=== PATIENT | female | born 1945 | race Caucasian/White ===

== ENCOUNTER 2018-07-30 09:08 | Day surgery (SDC) | payer MEDICARE, BC, OTHER ==
[~2018-07-30] VITALS: Ht 152.4 cm; Wt 77.0 kg
[~2018-07-30 09:08] MED LIST: ADAL40SY INJ; ATOR20TA37 PO; CALC-332 PO; CARV10CP PO; CETI10CA PO; CHOL40002 PO; DENO60DI INJ; FOLI-17 PO; IBUP200C8 PO; LEVO150T5 PO; METH2.5T PO; MONT10TA6 PO; MULT-658 PO; OMEG1CAP6 PO; PANT20TA2 PO; SILVER NITRATE STICK TP ONE; [UNRECOGNIZED DRUG - OTHER] TP
[2018-07-30] MEDS ORDERED: LACTATED RINGERS 1,000 ML IV SCH (09:23)
[2018-07-30] MEDS ORDERED: MIDAZOLAM 1 MG/ML, 2ML ONE (10:34)
[2018-07-30] MEDS ORDERED: FENTANYL PF 250 MCG/5ML ONE (10:34)
[2018-07-30] MEDS ORDERED: ROCURONIUM 10 MG/ML,10ML ONE (11:37)
[2018-07-30] MEDS ORDERED: BUPIVACAINE/PF 0.25% INFIL ONE (11:39)
[2018-07-30] MEDS ORDERED: ONDANSETRON 2MG/ML, 2ML ONE (11:55)
[2018-07-30] MEDS ORDERED: PROPOFOL 10 MG/ML, 20ML ONE (11:55)
[2018-07-30] MEDS ORDERED: DEXAMETHASONE 4 MG/ML, 5ML ONE (11:55)
[2018-07-30] MEDS ORDERED: PROMETHAZINE 25 MG/ML, 1ML IV PRN (12:00)
[2018-07-30] MEDS ORDERED: hydrALAzine 20 MG/ML, 1ML IV PRN (12:00)
[2018-07-30] MEDS ORDERED: HYDROmorphone 2 MG/ML, 1ML IVPush PRN (12:00)
[2018-07-30] MEDS ORDERED: ONDANSETRON 2MG/ML, 2ML IV PRN (12:00)
[2018-07-30] MEDS ORDERED: ACETAMINOPHEN 325 MG TABLET PO PRN (12:00)
[2018-07-30] MEDS ORDERED: LABETALOL 5MG/ML, 20ML IV PRN (12:00)
[2018-07-30] MEDS ORDERED: MEPERIDINE/PF 25MG/0.5ML IVPush PRN (12:00)
[2018-07-30] MEDS ORDERED: OXYcodone 5 MG/5 ML ORAL.SOL UDC PO PRN (12:00)
[2018-07-30] MEDS ORDERED: FENTANYL PF 100 MCG/2ML IV PRN (12:00)
[2018-07-30] MEDS ORDERED: PROMETHAZINE 25 MG/ML, 1ML ONE (13:05)
== END 2018-07-30 16:10 | disposition home or self-care (01) ==
LOC: OUT 09:08
PROVIDERS: ATTEND Obstetrics & Gynecology
DX: N95.0 Postmenopausal bleeding (principal); I10 Essential (primary) hypertension; E03.9 Hypothyroidism, unspecified; E78.5 Hyperlipidemia, unspecified; Z86.718 Personal history of other venous thrombosis and embolism
CPT/HCPCS: 58558; 88305; J1100; J2250; J2405; J2550; J2704; J3010; J3490; J7120

== ENCOUNTER 2019-05-15 11:47 | Inpatient (IN) | payer MEDICARE, BC, OTHER ==
[~2019-05-15] VITALS: Ht 152.4 cm; Wt 79.6 kg
[~2019-05-15 11:47] MED LIST changes: -SILVER NITRATE STICK TP ONE
--- NOTE | 2019-05-15 11:58 | NUR ---
donita. report received from [facility]. pt's family noticed pt is confused since 9 am. pt states "i feel confused." denies any other sx. pt's aox4.resps even and unlabored. all monitors in place. call light within reach. ekg done at bedside by emt. md at bedside to avluate at this time.
--- NOTE | 2019-05-15 12:10 | NUR ---
WARM BLANCKET GIVEN AT THIS TIME.
--- NOTE | 2019-05-15 12:24 | NUR ---
PT AMB TO BR WITH STEADY GAIT. UA CUP GIVEN.
--- NOTE | 2019-05-15 12:36 | NUR ---
UA SENT AT THIS TIME.
[2019-05-15 12:44] LABS: BASOPHILS # (AUTO) 0.02 x10^3/uL (0-0.1); BASOPHILS % (AUTO) 0 % (0-1); EOSINOPHILS # (AUTO) 0.04 x10^3/uL (0-0.4); EOSINOPHILS % (AUTO) 0 % (1-7); LYMPHOCYTES # (AUTO) 1.58 x10^3/uL (1-3.4); LYMPHOCYTES % (AUTO) 15 % (22-44); MD NO; MEAN CORPUSCULAR HEMOGLOBIN 33.7 pg (27.0-34.8); MEAN CORPUSCULAR HGB CONC 32.5 g/dL (32.4-35.8); MEAN CORPUSCULAR VOLUME 103.7 fL (80-100); MEAN PLATELET VOLUME 7.7 fL (7.4-10.4); MONOCYTES # (AUTO) 0.44 x10^3/uL (0.2-0.8); MONOCYTES % (AUTO) 4 % (2-9); NEUTROPHILS # (AUTO) 8.53 x10^3/uL (1.8-6.8); NEUTROPHILS % (AUTO) 80 % (42-75); PLATELET COUNT 246 x10^3/uL (130-400); RED BLOOD COUNT 4.48 x10^6/uL (3.82-5.3)
[2019-05-15 12:45] LABS: MICROSCOPIC NOT IND
--- NOTE | 2019-05-15 12:54 | NUR ---
REPORT GIVEN TO ILEANA HOPPER.
[2019-05-15 12:57] LABS: ALANINE AMINOTRANSFERASE 43 U/L (12-78); ANION GAP 6 mmol/L (5-15); CALCIUM 9.4 mg/dL (8.5-10.1); CHLORIDE 115 mmol/L (98-107); CREATININE 0.68 mg/dL (0.55-1.02)
[2019-05-15 12:59] LABS: ALKALINE PHOSPHATASE 77 U/L (45-117); BILIRUBIN,TOTAL 0.6 mg/dL (0.2-1.0); TOTAL PROTEIN 7.6 g/dL (6.4-8.2)
[2019-05-15] MEDS ORDERED: ATOR20TA37 PO (13:03)
--- NOTE | 2019-05-15 13:03 | NUR ---
REPORT FROM RUCHI CARDENAS. PT SITTING RECLINED IN BED, RESPIRATIONS EVEN AND UNLABORED ON RA. AT BEDSIDE. CXR AT BEDSIDE. MED REC COMPLETE. PT DENIES PAIN AT THIS TIME.
[2019-05-15] MEDS ORDERED: ALBU0.63 NEB (13:07)
--- NOTE | 2019-05-15 13:07 | NUR ---
PT REPORTS JUST FINISHING TODAY ZPAK AND PREDNISONE FOR "LUNG INFECTION" GIVEN BY PRIMARY CARE. DENIES DX OF PNEUMONIA.
--- NOTE | 2019-05-15 13:46 | NUR ---
PT SITTING UP IN BED, RESPIRATIONS EVEN AND UNLABORED ON RA. SIDE RAILS UP, CALL LIGHT IN REACH. PT AWARE OF PLAN TO ADMIT FOR OBSERVATION. AOX4, BUT REPORTS CONFUSION STARTING TODAY. AT BEDSIDE.
[2019-05-15] MEDS ORDERED: IBUPROFEN 200 MG TABLET PO PRN (16:00)
[2019-05-15 16:20] VITALS: BP 126/73
[2019-05-15 16:30] VITALS: BP 126/73
[2019-05-15] MEDS ORDERED: LORazepam 2 MG/ML, 1ML IVPush PRN (16:30)
[2019-05-15 17:00] VITALS: BP 158/90
[2019-05-15 17:46] LABS: HEMOGLOBIN A1C 6.1 % (4.2-6.3)
[2019-05-15] MEDS ORDERED: GADOTERATE 7.5 MMOL/15 ML SYR ONE (17:47)
[2019-05-15 20:20] VITALS: BP 114/70
[2019-05-15] MEDS ORDERED: FOLIC ACID 1 MG TABLET PO SCH (21:00)
[2019-05-15] MEDS ORDERED: MONTELUKAST 10 MG TABLET PO SCH (21:00)
[2019-05-15] MEDS ORDERED: ATORVASTATIN 20 MG TABLET PO SCH (21:00)
[2019-05-15] MEDS ORDERED: CETIRIZINE 10 MG TABLET PO SCH (21:00)
[2019-05-16 01:20] VITALS: BP 121/77
[2019-05-16 05:54] LABS: BASOPHILS # (AUTO) 0.03 x10^3/uL (0-0.1); BASOPHILS % (AUTO) 0 % (0-1); EOSINOPHILS # (AUTO) 0.16 x10^3/uL (0-0.4); EOSINOPHILS % (AUTO) 2 % (1-7); LYMPHOCYTES # (AUTO) 3.39 x10^3/uL (1-3.4); LYMPHOCYTES % (AUTO) 34 % (22-44); MD NO; MEAN CORPUSCULAR HEMOGLOBIN 33.3 pg (27.0-34.8); MEAN CORPUSCULAR VOLUME 104.1 fL (80-100); MEAN PLATELET VOLUME 7.9 fL (7.4-10.4); MONOCYTES % (AUTO) 8 % (2-9); NEUTROPHILS # (AUTO) 5.52 x10^3/uL (1.8-6.8); NEUTROPHILS % (AUTO) 56 % (42-75); PLATELET COUNT 196 x10^3/uL (130-400); RED BLOOD COUNT 4.21 x10^6/uL (3.82-5.3); RED CELL DISTRIBUTION WIDTH 14.9 % (9.6-15.2)
[2019-05-16 05:58] LABS: ALANINE AMINOTRANSFERASE 38 U/L (12-78); ALBUMIN 3.6 g/dL (3.4-5.0); ANION GAP 6 mmol/L (5-15); CHLORIDE 114 mmol/L (98-107)
[2019-05-16 06:01] LABS: ALKALINE PHOSPHATASE 63 U/L (45-117); BILIRUBIN,TOTAL 0.7 mg/dL (0.2-1.0); CHOL/HDL RATIO 1.9; CHOLESTEROL, TOTAL 161 mg/dL (140-239); HDL CHOL % 52 % (28-40); HDL CHOLESTEROL (DIRECT) 83 mg/dL (40-60); LDL CHOLESTEROL,CALCULATED 60 mg/dL (54-169); LDL/HDL RATIO 0.7 (0.5-3.0); TOTAL PROTEIN 6.5 g/dL (6.4-8.2); TRIGLYCERIDES 91 mg/dL (50-200); VLDL CHOLESTEROL 18 mg/dL (0-25)
[2019-05-16] MEDS ORDERED: POTASSIUM CHLORIDE 20 MEQ TAB.ER.PRT PO ONE (06:30)
[2019-05-16] MEDS: PANTOPRAZOLE 20MG TABLET PO SCH ×2 (06:33→08:48)
[2019-05-16 07:28] VITALS: BP 127/80
[2019-05-16] MEDS ORDERED: OMEGA-3/FISH OIL CAPSULE PO SCH (09:00)
[2019-05-16] MEDS ORDERED: ASPIRIN 81 MG TABLET CHEW PO/NG SCH (09:00)
[2019-05-16] MEDS ORDERED: CHOLECALCIFEROL 1,000 UNIT TABLET PO SCH (09:00)
[2019-05-16] MEDS ORDERED: MULTIVITAMIN 1 TABLET PO SCH (09:00)
[2019-05-16] MEDS ORDERED: IBUPROFEN 200 MG TABLET PO PRN (09:00)
[2019-05-16] MEDS ORDERED: LEVOTHYROXINE 150 MCG TABLET PO SCH (09:00)
[2019-05-16] MEDS ORDERED: CARVEDILOL 3.125 MG TABLET PO SCH (09:00)
--- NOTE | 2019-05-16 09:02 | NUR ---
REC: Regular/thin liquids; no orange sheet indicated Addendum: 05/16/19 at 0903 by Britteny RICHARDSON Amended: Links added.
[2019-05-16 11:55] VITALS: BP 106/66
[2019-05-16] MEDS ORDERED: ACID1TAB3 PO (16:29)
[2019-05-16] MEDS ORDERED: AMOX1TAB12 PO (16:29)
[2019-05-17] MEDS ORDERED: CALCIUM/VITAMIN D3 250-125 TABLET PO SCH (09:00)
== END 2019-05-16 18:38 | disposition home or self-care (01) | DRG 71 ==
LOC: ED 13:37 → EDIP 13:44 → 4EST 15:10
PROVIDERS: ADMIT Hospitalist; ATTEND Hospitalist
PROC: 5A09357 Assistance with Respiratory Ventilation, Less than 24 Consecutive Hours, Continuous Positive Airway Pressure (ICD-10-PCS; principal; 2019-05-16)
DX: G45.4 Transient global amnesia (principal); E87.0 Hyperosmolality and hypernatremia; D75.89 Other specified diseases of blood and blood-forming organs; E03.9 Hypothyroidism, unspecified; E78.5 Hyperlipidemia, unspecified; I10 Essential (primary) hypertension; J01.90 Acute sinusitis, unspecified; J30.2 Other seasonal allergic rhinitis; K21.9 Gastro-esophageal reflux disease without esophagitis; M06.9 Rheumatoid arthritis, unspecified; T38.0X5A Adverse effect of glucocorticoids and synthetic analogues, initial encounter; Z79.899 Other long term (current) drug therapy; R73.9 Hyperglycemia, unspecified; Z82.49 Family history of ischemic heart disease and other diseases of the circulatory system; Z86.718 Personal history of other venous thrombosis and embolism; Z88.0 Allergy status to penicillin; Z88.6 Allergy status to analgesic agent; Z98.51 Tubal ligation status; Z90.49 Acquired absence of other specified parts of digestive tract
CPT/HCPCS: 36415; 80053; 80061; 85025; 93306; 93880; 99285; A9575; J2060